=== PATIENT | male | born 1965 | race Caucasian/White ===

== ENCOUNTER 2016-10-17 21:05 | Emergency (ER) | payer OTHER ==
[2016-10-17 23:36] LABS: BASOPHIL 0.3 % (0-2); EOSINOPHIL 2.2 % (0-5); HCT 40.9 % (42.0-52.0); HGB 13.2 g/dl (13.2-18.0); LYMPHOCYTE 17.6 % (15-48); MCH 32.4 pg (25.0-31.0); MCHC 32.3 g/dL (32.0-36.0); MCV 100.2 fL (78.0-100.0); MONOCYTE 6.3 % (0-12); MPV 9.9 fL (6.0-9.5); NEUTROPHIL 73.6 % (41-80); PLT 135 K/uL (150-400); RBC 4.08 M/uL (4.70-6.00); WBC 6.8 K/uL (4.0-10.5)
[2016-10-17 23:54] LABS: CREATININE 0.7 mg/dL (0.7-1.2); POTASSIUM 3.4 mmol/L (3.5-5.1)
== END 2016-10-18 05:10 | disposition home or self-care (01) ==
LOC: FER 21:05
PROVIDERS: Emergency Medicine Emergency Medical Services
DX: S09.90XA Unspecified injury of head, initial encounter (principal); E86.9 Volume depletion, unspecified; Z88.0 Allergy status to penicillin; Z23 Encounter for immunization; W50.0XXA Accidental hit or strike by another person, initial encounter; Y92.838 Other recreation area as the place of occurrence of the external cause
CPT/HCPCS: 36415; 70450; 72125; 80048; 85025; 90471; 90715; G0480; J1885

== ENCOUNTER 2016-12-11 19:21 | Emergency (ER) | payer OTHER ==
[2016-12-11 20:23] LABS: BASOPHIL 0.4 % (0-2); EOSINOPHIL 0.7 % (0-5); HCT 36.4 % (42.0-52.0); LYMPHOCYTE 39.9 % (15-48); MCH 31.1 pg (25.0-31.0); MCV 94.3 fL (78.0-100.0); MONOCYTE 9.2 % (0-12); MPV 9.4 fL (6.0-9.5); NEUTROPHIL 49.8 % (41-80); PLT 245 K/uL (150-400); RBC 3.86 M/uL (4.70-6.00); RDW 14.4 % (11.5-14.0); WBC 4.5 K/uL (4.0-10.5)
[2016-12-11 20:28] LABS: INR 1.01 (0.9-1.2); PROTHROMBIN TIME 12.9 SECONDS (11.7-14.0); PTT 31.9 SECONDS (23.2-31.4)
[2016-12-11 20:36] LABS: ALBUMIN 3.6 g/dL (3.5-5.0); BILIRUBIN - TOTAL 0.2 mg/dL (0.1-1.0); CREATININE 0.7 mg/dL (0.7-1.2); GLOBULIN (CALCULATION) 3.5 g/dL (2.2-4.2); POTASSIUM 3.6 mmol/L (3.5-5.1); TOTAL PROTEIN 7.1 g/dL (6.4-8.3)
[2016-12-11 20:41] LABS: BILIRUBIN NEGATIVE (NEGATIVE); BLOOD NEGATIVE Ery/uL (NEGATIVE); CLARITY CLEAR (CLEAR); COLOR YELLOW (YELLOW); GLUCOSE (U) NORMAL (NORMAL); KETONE (U) 1+ (SMALL) mg/dL (NEGATIVE); LEUKOCYTES NEGATIVE Leu/uL (NEGATIVE); NITRITE NEGATIVE (NEGATIVE); PROTEIN NEGATIVE (NEGATIVE); UROBILINOGEN 0.2 mg/dL (0.2-1.0)
== END 2016-12-11 23:50 | disposition home or self-care (01) ==
LOC: FER 19:21
PROVIDERS: Emergency Medicine
DX: G40.909 Epilepsy, unspecified, not intractable, without status epilepticus (principal); F10.20 Alcohol dependence, uncomplicated; I10 Essential (primary) hypertension; Z88.0 Allergy status to penicillin; Z87.820 Personal history of traumatic brain injury; Z98.890 Other specified postprocedural states; Y90.8 Blood alcohol level of 240 mg/100 ml or more
CPT/HCPCS: 36415; 71010; 80053; 81003; 84484; 85025; 85610; 85730; 93005; 99284; G0480

== ENCOUNTER 2021-03-01 07:14 | Emergency (ER) | payer OTHER ==
[2021-03-01 07:55] LABS: BASOPHIL 0.5 % (0-2); EOSINOPHIL 3.4 % (0-5); HCT 44.5 % (42.0-52.0); LYMPHOCYTE 31.9 % (15-48); MCH 31.3 pg (25.0-31.0); MCHC 33.7 g/dL (32.0-36.0); MCV 92.7 fL (78.0-100.0); MONOCYTE 7.3 % (0-12); MPV 9.9 fL (6.0-9.5); NEUTROPHIL 56.4 % (41-80); NRBC 0; PLT 257 K/uL (150-400); RDW 12.5 % (11.5-14.0); WBC 6.2 K/uL (4.0-10.5)
[2021-03-01 07:59] LABS: INR 1.02 (0.9-1.2); PROTHROMBIN TIME 12.8 SECONDS (11.8-13.4); PTT 26.5 SECONDS (24.4-34.7)
[2021-03-01 08:35] LABS: ALBUMIN 3.4 g/dL (3.4-5.0); ALKALINE PHOSHATASE 126 U/L (46-116); ALT 23 U/L (16-63); AST 25 U/L (15-37); BILIRUBIN - TOTAL 0.2 mg/dL (0.2-1.0); BUN 7 mg/dL (7-18); BUN/CREAT RATIO (CALC) 8.6 RATIO; CHLORIDE 98 mmol/L (98-107); CO2 (BICARBONATE) 24 mmol/L (21-32); CREATININE 0.81 mg/dL (0.67-1.17); GLOBULIN (CALCULATION) 4.6 g/dL; GLUCOSE 93 mg/dL (74-106); LACTIC ACID 2.3 mmol/L (0.4-1.9); POTASSIUM 3.8 mmol/L (3.5-5.1)
[2021-03-01 08:36] LABS: ACETAMINOPHEN (TYLENOL) < 2.0 ug/mL (10.0-30.0)
[2021-03-01 10:09] LABS: BILIRUBIN NEGATIVE (NEGATIVE); BLOOD NEGATIVE Ery/uL (NEGATIVE); CLARITY CLEAR (CLEAR); COLOR YELLOW (YELLOW); GLUCOSE (U) NORMAL (NORMAL); LEUKOCYTES NEGATIVE Leu/uL (NEGATIVE); NITRITE NEGATIVE (NEGATIVE); PROTEIN NEGATIVE (NEGATIVE); SPECIFIC GRAVITY <=1.005 (1.001-1.030); UROBILINOGEN 0.2 mg/dL (0.2-1.0); pH 5.5 (5.0-9.0)
[2021-03-01 10:15] LABS: AMPHETAMINES NEGATIVE (NEGATIVE); BARBITURATES NEGATIVE (NEGATIVE); ECSTASY (MDMA) NEGATIVE (NEGATIVE); MARIJUANA (THC) NEGATIVE (NEGATIVE); METHADONE NEGATIVE (NEGATIVE); OPIATES NEGATIVE (NEGATIVE); OXYCODONE NEGATIVE (NEGATIVE)
== END 2021-03-01 15:35 | disposition home or self-care (01) ==
LOC: FER 07:14 → FICU 11:48 → FER 15:35
PROVIDERS: Emergency Medicine
DX: F10.129 Alcohol abuse with intoxication, unspecified (principal); Z88.0 Allergy status to penicillin; Y90.8 Blood alcohol level of 240 mg/100 ml or more; Z20.822 Contact with and (suspected) exposure to COVID-19
CPT/HCPCS: 36415; 36600; 70450; 71045; 71275; 72125; 80053; 80305; 81003; 82140; 82803; 83605; 83880; 85025; 85610; 85730; 93005; G0480; J2930; J7040; Q9967; U0002

== ENCOUNTER 2021-04-14 11:21 | Emergency (ER) | payer OTHER ==
[2021-04-14 11:52] LABS: BASOPHIL 0.4 % (0-2); EOSINOPHIL 1.3 % (0-5); HCT 43.1 % (42.0-52.0); HGB 14.5 g/dl (13.2-18.0); LYMPHOCYTE 16.1 % (15-48); MCH 30.9 pg (25.0-31.0); MCHC 33.6 g/dL (32.0-36.0); MCV 91.7 fL (78.0-100.0); MONOCYTE 11.2 % (0-12); MPV 10.7 fL (6.0-9.5); NEUTROPHIL 70.6 % (41-80); NRBC 0; PLT 284 K/uL (150-400); RDW 13.4 % (11.5-14.0); WBC 8.3 K/uL (4.0-10.5)
[2021-04-14 12:51] LABS: LACTIC ACID 1.5 mmol/L (0.4-1.9)
[2021-04-14 13:13] LABS: CPK 671 U/L (39-308)
[2021-04-14 13:17] LABS: CREATININE 0.87 mg/dL (0.67-1.17); POTASSIUM 3.9 mmol/L (3.5-5.1)
[2021-04-14 13:33] LABS: ALBUMIN 2.9 g/dL (3.4-5.0); BILIRUBIN - TOTAL 0.9 mg/dL (0.2-1.0); TOTAL PROTEIN 7.9 g/dL (6.4-8.2)
[2021-04-14 15:37] LABS: BILIRUBIN 2+ mg/dL (NEGATIVE); BLOOD NEGATIVE Ery/uL (NEGATIVE); CLARITY CLEAR (CLEAR); COLOR YELLOW (YELLOW); GLUCOSE (U) NORMAL (NORMAL); LEUKOCYTES NEGATIVE Leu/uL (NEGATIVE); NITRITE NEGATIVE (NEGATIVE); PROTEIN NEGATIVE (NEGATIVE); SPECIFIC GRAVITY >=1.030 (1.001-1.030); pH 5.5 (5.0-9.0)
[2021-04-14 15:38] LABS: BARBITURATES NEGATIVE (NEGATIVE); ECSTASY (MDMA) NEGATIVE (NEGATIVE); MARIJUANA (THC) NEGATIVE (NEGATIVE); METHADONE NEGATIVE (NEGATIVE); OPIATES NEGATIVE (NEGATIVE)
[2021-04-14 15:39] LABS: AMPHETAMINES NEGATIVE (NEGATIVE); OXYCODONE NEGATIVE (NEGATIVE)
[2021-04-14 15:56] LABS: BUN/CREAT RATIO (CALC) 36.2 RATIO; CREATININE 0.8 mg/dL (0.67-1.17); POTASSIUM 3.8 mmol/L (3.5-5.1)
== END 2021-04-14 18:44 | disposition home or self-care (01) ==
LOC: FER 11:21
PROVIDERS: Emergency Medicine; Physician Assistant
DX: E86.0 Dehydration (principal); Z88.0 Allergy status to penicillin
CPT/HCPCS: 36415; 70450; 80048; 80053; 80305; 81003; 82150; 82550; 83605; 84145; 84484; 85025; 87040; G0480; J7030; J7040

== ENCOUNTER 2021-07-22 10:37 | Emergency (ER) | payer OTHER ==
[2021-07-22 11:37] LABS: BASOPHIL 0.3 % (0-2); EOSINOPHIL 0.2 % (0-5); HCT 44.1 % (42.0-52.0); HGB 14.8 g/dl (13.2-18.0); LYMPHOCYTE 9.9 % (15-48); MCH 31.6 pg (25.0-31.0); MCHC 33.6 g/dL (32.0-36.0); MONOCYTE 7.1 % (0-12); MPV 10.5 fL (6.0-9.5); NRBC 0; RBC 4.69 M/uL (4.70-6.00); RDW 14.3 % (11.5-14.0)
[2021-07-22 11:38] LABS: PLT 88 K/uL (150-400)
[2021-07-22 11:53] LABS: ALBUMIN 3.2 g/dL (3.4-5.0); BILIRUBIN - TOTAL 1.3 mg/dL (0.2-1.0); BUN/CREAT RATIO (CALC) 30.4 RATIO; CREATININE 1.02 mg/dL (0.67-1.17); GLOBULIN (CALCULATION) 4.1 g/dL; POTASSIUM 3.7 mmol/L (3.5-5.1); TOTAL PROTEIN 7.3 g/dL (6.4-8.2)
[2021-07-22 11:59] LABS: LACTIC ACID 2.3 mmol/L (0.4-1.9)
[2021-07-22 12:57] LABS: CPK 891 U/L (39-308)
[2021-07-22 13:43] LABS: BILIRUBIN 1+ mg/dL (NEGATIVE); BLOOD TRACE-INTACT Ery/uL (NEGATIVE); CLARITY CLEAR (CLEAR); COLOR YELLOW (YELLOW); GLUCOSE (U) NORMAL (NORMAL); LEUKOCYTES NEGATIVE Leu/uL (NEGATIVE); NITRITE NEGATIVE (NEGATIVE); PROTEIN NEGATIVE (NEGATIVE)
[2021-07-22 13:47] LABS: ECSTASY (MDMA) NEGATIVE (NEGATIVE); MARIJUANA (THC) NEGATIVE (NEGATIVE); METHADONE NEGATIVE (NEGATIVE)
[2021-07-22 13:48] LABS: AMPHETAMINES NEGATIVE (NEGATIVE); BARBITURATES NEGATIVE (NEGATIVE); OPIATES NEGATIVE (NEGATIVE); OXYCODONE NEGATIVE (NEGATIVE)
[2021-07-22 13:55] LABS: BACTERIA 1+; MUCOUS TRACE; SPERM PRESENT; URINARY RBC RARE
[2021-07-22 18:32] LABS: LACTIC ACID 1.5 mmol/L (0.4-1.9)
== END 2021-07-22 19:10 | disposition home or self-care (01) ==
LOC: FER 10:37
PROVIDERS: Internal Medicine; Nurse Practitioner Family
DX: E86.0 Dehydration (principal); R10.9 Unspecified abdominal pain; R41.82 Altered mental status, unspecified; F10.10 Alcohol abuse, uncomplicated; Z20.822 Contact with and (suspected) exposure to COVID-19; Z88.0 Allergy status to penicillin; Y90.0 Blood alcohol level of less than 20 mg/100 ml
CPT/HCPCS: 36415; 70450; 80053; 80305; 81001; 82550; 83605; 85025; 87040; 87088; G0480; J7030; Q9967; U0002